=== PATIENT | male | born 1960 | race Caucasian/White ===

== ENCOUNTER 2018-04-26 09:28 | Emergency (ER) | payer OTHER ==
[~2018-04-26] VITALS: Ht 162.6 cm; Wt 90.7 kg
--- NOTE | 2018-04-26 09:30 | NUR ---
AAOX3, BIB FAMILY C/O LEFT FACIAL SWELLING WHEN HE WOKE UP WEDNESDAY MORNING. PER PATIENT REPORT, HE TOOK [place]CO BEFORE HE WENT TO SLEEP ON WEDNESDAY. RR IS EVEN AND UNLABORED WITH NAD NOTED. SKIN IS WARM AND DRY.
--- NOTE | 2018-04-26 10:28 | NUR ---
Dr Michel at talking to patient and family.
--- NOTE | 2018-04-26 10:34 | NUR ---
Patient discharged to home in stable condition. Written and verbal after care instructions given. Patient verbalizes understanding of instruction.
[2018-04-26 10:35] VITALS: BP 122/83
== END 2018-04-26 10:36 | disposition home or self-care (01) ==
LOC: ER 09:28
DX: H01.004 Unspecified blepharitis left upper eyelid (principal); E11.9 Type 2 diabetes mellitus without complications
CPT/HCPCS: 99283; A4606; Z7610

== ENCOUNTER → 2021-11-29 | Emergency (ER) | payer MEDICAID, OTHER ==
[~2021-11-29] VITALS: Ht 162.6 cm; Wt 95.3 kg
[~2021-11-29] MED LIST: SULF1TAB48 PO
[2021-11-29 22:13] VITALS: BP 149/88
--- NOTE | 2021-11-29 22:13 | NUR ---
BIB DTR FROM HOME C/O LEFT SHOULDER ABSCESS X 4 DAYS FELT WORSE TODAY. PT A/OX4. TOLERATING R/A WELL WITH NO SOB. AMB WITH STEADY GAIT. SAFETY MEASURES IN PLACE
--- NOTE | 2021-11-29 22:14 | NUR ---
DR. LAW COOPER AT PT'S BEDSIDE
--- NOTE | 2021-11-29 22:29 | NUR ---
Patient discharged to home in stable condition. rx Written and verbal after care instructions given. Patient verbalizes understanding of instruction. pt ambulatory with a steady gait
== END | disposition home or self-care (01) ==
LOC: ER 22:34
DX: L03.312 Cellulitis of back [any part except buttock and flank] (principal); E11.9 Type 2 diabetes mellitus without complications; F17.200 Nicotine dependence, unspecified, uncomplicated